=== PATIENT | female | born 1980 | race African-American/Black ===

== ENCOUNTER → 2016-11-14 | Day surgery (SDC) | payer OTHER ==
[~2016-11-14] MED LIST: PROPOFOL 20 ML ONE
[2016-11-14 11:26] VITALS: TEMP 98.6
[2016-11-14 13:01] VITALS: BP 100/53; PULSE 59
--- NOTE | 2016-11-15 13:27 | PATH ---
Surgical Pathology Report Patient Name: RAJ SANTOS [facility]. Rec. #: [id number] /Age/Gender: 1980 (Age: 36) / F Account: [id number] Location: U-ENDOSCOPY Taken: 11/14/2016 Received: 11/14/2016 Reported: 11/15/2016 Physicians: Adrian Guthrie M.D. Specimen(s) Received A: BX DESCENDING COLON B: BX SIGMOID COLON C: BX DISTAL RECTUM Clinical History History of ulcerative colitis Normal Final Diagnosis A. COLON, DESCENDING, BIOPSY: COLONIC MUCOSA WITH FOCAL MILD CRYPT ALTERATION. NO EVIDENCE OF ACTIVE INFLAMMATION, GRANULOMATA OR DYSPLASIA. B. COLON, SIGMOID, BIOPSY: COLONIC MUCOSA WITH FOCAL MILD ACTIVE INFLAMMATION WITH FOCAL MILD CRYPT ALTERATION. NO EVIDENCE OF GRANULOMATA OR DYSPLASIA. C. DISTAL RECTUM, BIOPSY: RECTAL MUCOSA WITH REACTIVE LYMPHOID AGGREGATES AND FOCAL MILD CRYPT ALTERATION. NO EVIDENCE OF ACTIVE INFLAMMATION, GRANULOMATA OR DYSPLASIA. Comment: History of ulcerative colitis is noted. The histologic findings are compatible with mild idiopathic bowel disease. Electronically Signed Teodoro Tobar M.D. Gross Description A. Received in formalin, labeled "biopsy descending colon" are 2 mace, irregular portions of soft tissue averaging 0.3 cm in greatest dimension. The specimens are submitted in toto in one cassette. B. Received in formalin, labeled "biopsy sigmoid colon" are 2 mace, irregular portions of soft tissue measuring 0.3 and 0.4 cm in greatest dimension. The specimens are submitted in toto in one cassette. C. Received in formalin, labeled "biopsy distal rectum" are 2 mace, irregular portions of soft tissue measuring 0.1 and 0.2 cm in greatest dimension. The specimens are submitted in toto in one cassette. 11/14/2016 saudi11/14/2016
== END | disposition home or self-care (01) ==
LOC: JASU-ENDO 08:51
PROVIDERS: ATTEND Internal Medicine Gastroenterology
PROC: 0DBM8ZX Excision of Descending Colon, Via Natural or Artificial Opening Endoscopic, Diagnostic (ICD-10-PCS; 2016-11-14)
PROC: 0DBN8ZX Excision of Sigmoid Colon, Via Natural or Artificial Opening Endoscopic, Diagnostic (ICD-10-PCS; 2016-11-14)
PROC: 0DBP8ZX Excision of Rectum, Via Natural or Artificial Opening Endoscopic, Diagnostic (ICD-10-PCS; principal; 2016-11-14 09:30)
DX: K51.90 Ulcerative colitis, unspecified, without complications (principal)
CPT/HCPCS: 84703; 88305-TC